=== PATIENT | female | born 1960 | race Caucasian/White ===

== ENCOUNTER 2017-05-15 22:02 | Emergency (ER) | payer OTHER ==
[~2017-05-15] VITALS: Ht 165.1 cm; Wt 74.0 kg
[~2017-05-15 22:02] MED LIST: AMLO10 PO; ATRO1SOL11 LEFT EYE; CITA40TA4 PO; DORZ2SOL7 LEFT EYE; DOXY100C PO; ESTR2TAB4 PO; HYDR50TA3 PO; LABE200T2 PO; LOVA20TA PO; METO100T PO; NORE5TAB PO; SULF10SU3 LEFT EYE; VIGA0.5D LEFT EYE
[2017-05-15 22:22] VITALS: BP 157/91; PULSE 86; RESP 22; TEMP 98.3; O2SAT 98
[2017-05-15] MEDS ORDERED: TETANUS/DIPHTHERIA TOXOID ADULT 0.5 ML VIAL IM ONE (22:30)
[2017-05-15] MEDS ORDERED: LIDOCAINE 1%/EPINEPHrine 1:100,000 SOLN 20 ML VIAL INFIL ONE (22:30)
--- NOTE | 2017-05-15 22:32 | PD ---
HPI Chief Complaint: Bite or Sting Time Seen by Provider: 22:21 Travel History International Travel<30 days: No Contact w/Intl Traveler<30days: No Traveled to known affect area: No History of Present Illness HPI Patient comes in for evaluation status post dog bite to the distal tib-fib right lower extremity that occurred shortly prior to arrival. Patient states it was her niece's dog that is a rather large puppy and a pit bull mix that started attacking for no apparent reason. Patient states she went to get the dog off of her niece when she ended up getting bit. Patient states the dog grabbed her by the leg and drug her around. Patient complaining of a throbbing aching pain around site of the laceration without radiation. Pain is worse with movement of her right ankle/foot. Patient reports her tetanus shot is not up-to-date. Patient does not believe the dog's vaccinations are up-to-date but the dog has been placed in custody. Patient received 6 mg of morphine by EMS en route to the ER that seemed to help the patient's pain some. Denies any numbness or tingling. 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 ) Social History Alcohol Use: Yes (occas) Tobacco Use: No Substance Use: No Allergies-Medications (Allergen,Severity, Reaction): Coded Allergies: butorphanol (Unverified Allergy, Severe, Anaphylaxis, 04/03/17) diclofenac (Unverified Allergy, Severe, Anaphylaxis, 04/03/17) etodolac (Unverified Allergy, Severe, Anaphylaxis, 04/03/17) flurbiprofen (Unverified Allergy, Severe, Anaphylaxis, 04/03/17) ibuprofen (Unverified Allergy, Severe, Anaphylaxis, 04/03/17) indomethacin (Unverified Allergy, Severe, Anaphylaxis, 04/03/17) ketoprofen (Unverified Allergy, Severe, Anaphylaxis, 04/03/17) ketorolac (Unverified Allergy, Severe, Anaphylaxis, 04/03/17) naproxen (Unverified Allergy, Severe, Anaphylaxis, 04/03/17) oxaprozin (Unverified Allergy, Severe, Anaphylaxis, 04/03/17) pseudoephedrine (Unverified Allergy, Severe, Itching, 04/03/17) Reported Meds & Prescriptions Reported Meds & Active Scripts Active Bactroban Topical (Mupirocin) 22 Gm Cream 1 Applic TOPICAL TID 7 Days Lortab (Hydrocodone-Acetaminophen) 5-325 Mg Tab 1 Tab PO Q6H PRN Augmentin (Amoxicillin-Clavulanate) 875-125 Mg Tab 1 Tab PO BID 10 Days Reported Norvasc (Amlodipine Besylate) 10 Mg Tab 10 Mg PO DAILY Citalopram (Citalopram Hydrobromide) 40 Mg Tab 40 Mg PO DAILY Lovastatin 20 Mg Tab 20 Mg PO DAILY Metoprolol Tartrate 100 Mg Tab 100 Mg PO DAILY Norethindrone (Norethindrone Acetate) 5 Mg Tab 0.35 Mg PO DAILY Estrace (Estradiol) 2 Mg Tab 2 Mg PO DAILY Hydrochlorothiazide 50 Mg Tab 50 Mg PO BID Doxycycline Hyclate 100 Mg Cap 100 Mg PO HS Labetalol (Labetalol HCl) 200 Mg Tab 200 Mg PO DAILY Atropine Opth Drops 1% Soln 1 Drop LEFT EYE DAILY Cosopt Opth Drops (Dorzolamide-Timolol Opth Drops) 22.3-6.8 Mg/Ml Soln 1 Drop LEFT EYE BID Blephamide Opth Drops (Prednisolone/Sulfacetamide) 10-0.2 % Susp 1 Drop LEFT EYE 10 TIMES / DAY Vigamox Opth Drops (Moxifloxacin Opth Drops) 0.5 % Soln 1 Drop LEFT EYE 6 TIMRS /DAY Review of Systems Except as stated in HPI: all other systems reviewed are Neg Physical Exam Narrative GENERAL: Well-developed, overly nourished, in no acute distress, and non-ill appearing. SKIN: Multiple dog bites/lacerations noted distal tib-fib right lower extremity. Neurovascularly intact distally. No crepitus. Patient reports tenderness to palpation around the sites of the bites. There is no obvious tendon involvement. No foreign body noted. HEAD: Atraumatic. Normocephalic. EYES: Pupils equal and round. EOMI. No scleral icterus. No injection or drainage. ENT: No nasal bleeding or discharge. Mucous membranes pink and moist. NECK: Trachea midline. Supple. No nuclear rigidity. CARDIOVASCULAR: Dorsal pulses 2+, tach, and equal bilaterally. Capillary refill less than 2 seconds. RESPIRATORY: No accessory muscle use. No respiratory distress. MUSCULOSKELETAL: No obvious deformities. No clubbing. No cyanosis. No edema. Decreased range of motion right ankle secondary to pain. Ankle: Neagative anterior draw and Islas test. Negative Antoinette's sign. No laxity noted with passive inversion and eversion of BL ankles. Negative squeeze test. Pulses equal BL distal to injury. Capillary refill less than 2 seconds distal to injury and equal BL. Sensation equal BL 1st web space. FROM of toes distal to injury and equal BL. NV intact distal to injury and equal BL. Dorsal pulses equal BL. NEUROLOGICAL: Awake and alert. No obvious cranial nerve deficits. Motor grossly within normal limits. Normal speech. PSYCHIATRIC: Appropriate mood and affect; insight and judgment normal. Data Data Last Documented VS Vital Signs Date Time Temp Pulse Resp B/P (MAP) Pulse Ox O2 Delivery O2 Flow Rate FiO2 05/15/17 23:48 20 98 Room Air 05/15/17 22:24 85 05/15/17 22:22 98.3 157/91 (113) Orders Orders Iv Access Insert/Monitor (05/15/17 22:21) Tetanus/Diphtheria Tox Adult (Tetanus/Di (05/15/17 22:30) Lidocai-Epi 1%-1:100,000 Inj (Xylocaine- (05/15/17 22:30) Tibia/Fibula (Ap/Lat) (05/15/17 ) Lidocai-Epi 2%-1:100,000 Inj (Xylocaine- (05/15/17 22:45) Morphine Inj (Morphine Inj) (05/15/17 22:45) Sodium Chlor 0.9% 1000 Ml Inj (Ns 1000 M (05/15/17 22:35) Sodium Chloride 0.9% Flush (Ns Flush) (05/15/17 22:45) Ondansetron Inj (Zofran Inj) (05/15/17 22:45) Ecg Monitoring (05/15/17 22:35) Oximetry (05/15/17 22:35) Amoxicil-Clavulanate (Augmentin) (05/15/17 23:00) Crutches (05/15/17 22:57) Hydromorphone Pf Inj (Dilaudid Pf Inj) (05/15/17 23:30) Lorazepam (Ativan) (05/15/17 23:30) Acetamin-Hydrocod 325-5 Mg ([place] 5-325 (05/16/17 02:30) Mupirocin 2% Oint (Bactroban 2% Oint) (05/16/17 03:15) MDM Medical Decision Making Medical Screen Exam Complete: Yes Emergency Medical Condition: Yes Differential Diagnosis Dog bite, open fracture, foreign body, other Narrative Course The patient suffered animal bite wound. The animal is domesticated and the animal can be watched. There is no evidence of deep tissue involvement and/or local tendon involvement. There was no evidence to suggest foreign bodies. Visual and tactile exams were unremarkable. There was no evidence of neurovascular injury as well. The patients wounds were irrigated copiously, cleaned and dressed. Please see procedure note. Rabies prophylaxis was discussed with the patient and exposure appears low risk and not indicated. The patient was given signs and symptom warnings for infection, such as increasing pain, pain with movement of involved extremity,redness, swelling, associated heat, pus or fever. The patient was given antibiotics to cover mouth cuco and instructions for timely follow up for wound recheck. The patient was given instructions for timely follow up and for removal. The patient agreed with plan of care. Animal control was contacted per hospital protocol. X-ray was performed and there was no foreign body or tooth/tooth fragment. The patient was warned of possible unseen foreign body and instructed to return immediately if signs or symptoms develop. Patient in no obvious distress upon re-evaluation. All pertinent Radiology result(s) discussed with patient. Discussed patient with Dr. Beard prior to discharge, who is in agreement with plan of care and disposition. Patient was asked if they wanted to speak to my attending, which the patient did not wish to do at this time. Any questions/concerns in reference to patient diagnosis/ condition discussed and clarified prior to patient's discharge. Reinforced sheer importance of close follow up with patient's primary physician or primary care clinic. Instructed patient to return to ED immediately, if symptoms return/ worsen. Patient showed understanding of above instructions. Further instructions and recommendations were detailed in discharge paperwork. Patient left without difficulty out of ED at discharge. Diagnosis Primary Impression: Dog bite Qualified Codes: W54.0XXA - Bitten by dog, initial encounter Patient Instructions: Animal Bite (ED), Crutch Instructions (ED), General Instructions Additional Instructions: Follow-up with your primary care physician in 2-3 days for reevaluation. Return here in 10 days for suture removal. Take all medication as prescribed. Keep wound dry and clean as possible using soap and water. Do not soak or submerge wounds. Use crutches as needed. Return to the emergency department if symptoms get worse.s Med/Other Pt SpecificInfo: Prescription(s) given Scripts Mupirocin Topical (Bactroban Topical) 22 Gm Cream 1 APPLIC TOPICAL TID for Mgmt Bacterial Infection for 7 Days, #1 TUBE 0 Refills Prov: Heavenly Beard MD 05/16/17 Hydrocodone-Acetaminophen (Lortab) 5-325 Mg Tab 1 TAB PO Q6H Y for PAIN, #12 TAB 0 Refills Prov: Heavenly Beard MD 05/16/17 Amoxicillin-Clavulanate (Augmentin) 875-125 Mg Tab 1 TAB PO BID for Infection for 10 Days, #20 TAB 0 Refills Prov: Heavenly Beard MD 05/15/17 Disposition: 01 DISCHARGE HOME Condition: Stable Nolberto Clark May 15, 2017 22:32
[2017-05-15] MEDS ORDERED: SODIUM CHLOR 0.9% 1000 ML INJ 1,000 ML IV SCH (22:35)
[2017-05-15] MEDS ORDERED: MORPHINE SULFATE 4 MG/ML INJ IV PUSH ONE (22:45)
[2017-05-15] MEDS ORDERED: ONDANSETRON HCL 4 MG/2 ML VIAL IV PUSH ONE (22:45)
[2017-05-15] MEDS ORDERED: SODIUM CHLORIDE 0.9% FLUSH 10 ML FLUSH IV FLUSH PRN (22:45)
[2017-05-15] MEDS ORDERED: LIDOCAINE 2%/EPINEPHrine 1:100,000 20ML MDV NERV BLOCK ONE (22:45)
[2017-05-15] MEDS ORDERED: AUGM875T3 PO (22:51)
[2017-05-15] MEDS ORDERED: AMOXICILLIN/CLAVULANATE K 875 MG TAB PO ONE (23:00)
--- NOTE | 2017-05-15 23:05 | RADRPT ---
EXAM DATE/TIME: 05/15/2017 22:41 [facility] COMPARISON: No previous studies available for comparison. INDICATIONS : Dog bite to right distal lower leg. MEDICAL HISTORY : None. SURGICAL HISTORY : None. ENCOUNTER: Initial ACUITY: 1 day PAIN SCORE: 0/10 LOCATION: Right tib fib FINDINGS: Two view examination of the right tibia demonstrates no evidence of fracture or dislocation. Bony mi neralization is normal. The soft tissue structures are lacerated distally CONCLUSION: Soft tissue laceration distal right leg. No acute bony abnormality. Oc Muñoz MD on May 15, 2017 at 23:01 Board Certified Radiologist. This report was verified electronically.
[2017-05-15] MEDS ORDERED: HYDROmorphone HCL PF 1 MG/ML VIAL IV PUSH ONE (23:30)
[2017-05-15] MEDS ORDERED: LORazepam 0.5 MG TAB PO ONE (23:30)
[2017-05-15 23:48] VITALS: RESP 20; O2SAT 98
[2017-05-16] MEDS ORDERED: HYDR-3533 PO (02:19)
[2017-05-16] MEDS ORDERED: ACETAMINOPHEN/HYDROcodone 325 MG/5 MG TAB PO ONE (02:30)
[2017-05-16] MEDS ORDERED: MUPIROCIN 2% OINT 22 GM TUBE TOPICAL ONE (03:15)
[2017-05-16] MEDS ORDERED: MUPI2%T TOPICAL (03:32)
--- NOTE | 2017-05-16 04:39 | PD ---
Physical Exam Time Seen by Provider: 04:36 Data Data Last Documented VS Vital Signs Date Time Temp Pulse Resp B/P (MAP) Pulse Ox O2 Delivery O2 Flow Rate FiO2 05/15/17 23:48 20 98 Room Air 05/15/17 22:24 85 05/15/17 22:22 98.3 157/91 (113) Orders Orders Iv Access Insert/Monitor (05/15/17 22:21) Tetanus/Diphtheria Tox Adult (Tetanus/Di (05/15/17 22:30) Lidocai-Epi 1%-1:100,000 Inj (Xylocaine- (05/15/17 22:30) Tibia/Fibula (Ap/Lat) (05/15/17 ) Lidocai-Epi 2%-1:100,000 Inj (Xylocaine- (05/15/17 22:45) Morphine Inj (Morphine Inj) (05/15/17 22:45) Sodium Chlor 0.9% 1000 Ml Inj (Ns 1000 M (05/15/17 22:35) Sodium Chloride 0.9% Flush (Ns Flush) (05/15/17 22:45) Ondansetron Inj (Zofran Inj) (05/15/17 22:45) Ecg Monitoring (05/15/17 22:35) Oximetry (05/15/17 22:35) Amoxicil-Clavulanate (Augmentin) (05/15/17 23:00) Crutches (05/15/17 22:57) Hydromorphone Pf Inj (Dilaudid Pf Inj) (05/15/17 23:30) Lorazepam (Ativan) (05/15/17 23:30) Acetamin-Hydrocod 325-5 Mg ([place] 5-325 (05/16/17 02:30) Mupirocin 2% Oint (Bactroban 2% Oint) (05/16/17 03:15) MDM Medical Record Reviewed: Yes Supervised Visit with JEREMÍAS: No Procedures Procedure Narrative LACERATION LOCATION: Right distal lower extremity LENGTH: 9 cm NUMBER OF STITCHES/MONET: 9 sutures REPAIR: The area of the laceration was prepped with Betadine and sterilely draped. The laceration was infiltrated with a present lidocaine with epinephrine. The wound was copiously irrigated and explored without evidence of foreign body, tendon injury or neurovascular injury. The wound was loosely approximated using 4-0 Prolene. This was a single layer repair. A sterile dressing was applied. The patient was advised to keep the dressing clean and dry. Patient tolerated the procedure well. LACERATION LOCATION: Right distal lower extremity LENGTH: 3 cm NUMBER OF STITCHES/MONET: 2 sutures REPAIR: The area of the laceration was prepped with Betadine and sterilely draped. The laceration was infiltrated with a present lidocaine with epinephrine. The wound was copiously irrigated and explored without evidence of foreign body, tendon injury or neurovascular injury. The wound was loosely approximated using 4-0 Prolene. This was a single layer repair. A sterile dressing was applied. The patient was advised to keep the dressing clean and dry. Patient tolerated the procedure well. LACERATION LOCATION: Right distal lower extremity LENGTH: 4 cm NUMBER OF STITCHES/MONET: 4 sutures REPAIR: The area of the laceration was prepped with Betadine and sterilely draped. The laceration was infiltrated with a present lidocaine with epinephrine. The wound was copiously irrigated and explored without evidence of foreign body, tendon injury or neurovascular injury. The wound was loosely approximated using 4-0 Prolene. This was a single layer repair. A sterile dressing was applied. The patient was advised to keep the dressing clean and dry. Patient tolerated the procedure well. LACERATION LOCATION: Right distal lower extremity LENGTH: 3 cm NUMBER OF STITCHES/MONET: 4 sutures REPAIR: The area of the laceration was prepped with Betadine and sterilely draped. The laceration was infiltrated with a present lidocaine with epinephrine. The wound was copiously irrigated and explored without evidence of foreign body, tendon injury or neurovascular injury. The wound was loosely approximated using 4-0 Prolene. This was a single layer repair. A sterile dressing was applied. The patient was advised to keep the dressing clean and dry. Patient tolerated the procedure well. LACERATION LOCATION: Right distal lower extremity LENGTH: 5 cm NUMBER OF STITCHES/MONET:6 sutures REPAIR: The area of the laceration was prepped with Betadine and sterilely draped. The laceration was infiltrated with a present lidocaine with epinephrine. The wound was copiously irrigated and explored without evidence of foreign body, tendon injury or neurovascular injury. The wound was loosely approximated using 4-0 Prolene. This was a single layer repair. A sterile dressing was applied. The patient was advised to keep the dressing clean and dry. Patient tolerated the procedure well. Diagnosis Primary Impression: Dog bite Patient Instructions: General Instructions, Animal Bite (ED), Crutch Instructions (ED) Departure Forms: Tests/Procedures Additional Instruction: Follow-up with your primary care physician in 2-3 days for reevaluation. Return here in 10 days for suture removal. Take all medication as prescribed. Keep wound dry and clean as possible using soap and water. Do not soak or submerge wounds. Use crutches as needed. Return to the emergency department if symptoms get worse.s Scripts Mupirocin Topical (Bactroban Topical) 22 Gm Cream 1 APPLIC TOPICAL TID for Mgmt Bacterial Infection for 7 Days, #1 TUBE 0 Refills Prov: Heavenly Beard MD 05/16/17 Hydrocodone-Acetaminophen (Lortab) 5-325 Mg Tab 1 TAB PO Q6H Y for PAIN, #12 TAB 0 Refills Prov: Heavenly Beard MD 05/16/17 Amoxicillin-Clavulanate (Augmentin) 875-125 Mg Tab 1 TAB PO BID for Infection for 10 Days, #20 TAB 0 Refills Prov: Heavenly Beard MD 05/15/17 Disposition: 01 DISCHARGE HOME Condition: Stable Daniela Guillaume May 16, 2017 04:39
== END 2017-05-16 03:56 | disposition home or self-care (01) ==
LOC: NEPE 22:02
DX: S81.851A Open bite, right lower leg, initial encounter (principal); W54.0XXA Bitten by dog, initial encounter; Y92.009 Unspecified place in unspecified non-institutional (private) residence as the place of occurrence of the external cause; I10 Essential (primary) hypertension; Z23 Encounter for immunization
CPT/HCPCS: 12006; 73590; 90471; 90714; 96361; 96374; 96375; 99284; E0113; J1170; J2270; J2405; J7030

== ENCOUNTER 2017-05-18 19:19 | Emergency (ER) | payer OTHER ==
[~2017-05-18 19:19] MED LIST changes: +AUGM875T3 PO; +HYDR-3533 PO; +MUPI2%T TOPICAL
[2017-05-18 19:23] VITALS: BP 139/76; PULSE 80; RESP 15; TEMP 98.6; O2SAT 100
--- NOTE | 2017-05-18 20:40 | PD ---
HPI Chief Complaint: Bite or Sting Time Seen by Provider: 20:25 Travel History International Travel<30 days: No Contact w/Intl Traveler<30days: No Traveled to known affect area: No History of Present Illness HPI Patient comes in at the advice of her primary care doctor for evaluation of DVT. Patient seen here 3 days ago for dog bite reports she is taking all medication as prescribed, but continues to have pain around the area. Pain is worse when trying to move her ankle and palpation. Patient denies anything making it better. Denies any fevers or other new trauma. Patient reports she last took her pain medicine last at 11 AM. Patient states she's been taking ibuprofen along with this. 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 ) Social History Alcohol Use: Yes (occas) Tobacco Use: No Substance Use: No Allergies-Medications (Allergen,Severity, Reaction): Coded Allergies: butorphanol (Unverified Allergy, Severe, Anaphylaxis, 04/03/17) diclofenac (Unverified Allergy, Severe, Anaphylaxis, 04/03/17) etodolac (Unverified Allergy, Severe, Anaphylaxis, 04/03/17) flurbiprofen (Unverified Allergy, Severe, Anaphylaxis, 04/03/17) ibuprofen (Unverified Allergy, Severe, Anaphylaxis, 04/03/17) indomethacin (Unverified Allergy, Severe, Anaphylaxis, 04/03/17) ketoprofen (Unverified Allergy, Severe, Anaphylaxis, 04/03/17) ketorolac (Unverified Allergy, Severe, Anaphylaxis, 04/03/17) naproxen (Unverified Allergy, Severe, Anaphylaxis, 04/03/17) oxaprozin (Unverified Allergy, Severe, Anaphylaxis, 04/03/17) pseudoephedrine (Unverified Allergy, Severe, Itching, 04/03/17) Reported Meds & Prescriptions Reported Meds & Active Scripts Active Lortab (Hydrocodone-Acetaminophen) 5-325 Mg Tab 1 Tab PO Q6H PRN Augmentin (Amoxicillin-Clavulanate) 875-125 Mg Tab 1 Tab PO BID 10 Days Reported Cosopt Opth Drops (Dorzolamide-Timolol Opth Drops) 22.3-6.8 Mg/Ml Soln 1 Drop LEFT EYE BID Lisinopril 20 Mg Tab 20 Mg PO HS Lisinopril 40 Mg Tab 40 Mg PO DAILY Procardia XL (Nifedipine) 60 Mg Tab 60 Mg PO HS Metoprolol Tartrate 100 Mg Tab 100 Mg PO DAILY Doxycycline Hyclate 100 Mg Cap 100 Mg PO HS Atropine Opth Drops 1% Soln 1 Drop LEFT EYE DAILY Blephamide Opth Drops (Prednisolone/Sulfacetamide) 10-0.2 % Susp 1 Drop LEFT EYE 10 TIMES / DAY Review of Systems Except as stated in HPI: all other systems reviewed are Neg Physical Exam Narrative GENERAL: Well-developed, overly nourished, in no acute distress, and non-ill appearing. SKIN: Well-healing dog bites noted on right lower extremity complaints or dry clean intact. There is no crepitus or drainage. There is soft tissue swelling noted. There is no fluctuation. Is afebrile nontender to palpation. HEAD: Atraumatic. Normocephalic. EYES: Pupils equal and round. EOMI. No scleral icterus. No injection or drainage. ENT: No nasal bleeding or discharge. Mucous membranes pink and moist. NECK: Trachea midline. Supple. No nuclear rigidity. CARDIOVASCULAR: Dorsal pulses 2+, intact, and equal bilaterally. Capillary refill less than 2 seconds. RESPIRATORY: No accessory muscle use. No respiratory distress. MUSCULOSKELETAL: No obvious deformities. No clubbing. No cyanosis. No edema. Decreased range of motion right ankle secondary to pain. Neagative Islas test. Positive Antoinette's sign. Pulses equal BL distal to injury. Capillary refill less than 2 seconds distal to injury and equal BL. Sensation equal BL 1st web space. NV intact distal to injury and equal BL. Dorsal pulses equal BL. NEUROLOGICAL: Awake and alert. No obvious cranial nerve deficits. Motor grossly within normal limits. Normal speech. PSYCHIATRIC: Appropriate mood and affect; insight and judgment normal. Data Data Last Documented VS Vital Signs Date Time Temp Pulse Resp B/P (MAP) Pulse Ox O2 Delivery O2 Flow Rate FiO2 05/18/17 22:45 78 18 99 05/18/17 19:23 98.6 Room Air Orders Orders Us Leg Venous Doppler (05/18/17 20:32) Oxycodone-Acetamin 5-325 Mg (Percocet (05/18/17 20:45) Wound Care (05/18/17 22:17) MDM Medical Decision Making Medical Screen Exam Complete: Yes Emergency Medical Condition: Yes Interpretation(s) Ultrasound right lower extremity read by the radiologist shows: No evidence of DVT. Differential Diagnosis DVT, wound infection, wound recheck, other Narrative Course Patient in no obvious distress upon re-evaluation. All pertinent Radiology result(s) discussed with patient/family. Discussed patient with Dr. Madsen , who saw and evaluated the patient and is in agreement with plan of care and disposition. Any questions/concerns in reference to patient diagnosis/ condition discussed and clarified prior to patient's discharge. Reinforced sheer importance of close follow up with patient's primary physician or primary care clinic. Instructed patient to return to ED immediately, if symptoms return/ worsen. Patient showed understanding of above instructions. Further instructions and recommendations were detailed in discharge paperwork. Patient ambulated without difficulty out of ED at discharge. Diagnosis Primary Impression: Encounter for wound re-check Ruled Out: DVT (deep venous thrombosis) Patient Instructions: Acute Wounds (DC), Animal Bite (ED), General Instructions Additional Instructions: Follow-up with your primary care physician or return here in 7-10 days for suture removal. Take all medication as prescribed. Finish antibiotics previously prescribed. Return to the emergency department if symptoms get worse. Med/Other Pt SpecificInfo: Prescription(s) given Scripts Hydrocodone-Acetaminophen (Lortab) 5-325 Mg Tab 1 TAB PO Q6H Y for PAIN, #12 TAB 0 Refills Prov: Pedro Madsen MD 05/18/17 Disposition: 01 DISCHARGE HOME Condition: Stable Nolberto Clark May 18, 2017 20:40
[2017-05-18] MEDS ORDERED: oxyCODONE/ACETAMINOPHEN 5 MG/325 MG TAB PO ONE (20:45)
[2017-05-18] MEDS ORDERED: NIFE1TAB86 PO (21:15)
[2017-05-18] MEDS ORDERED: LISI-515 PO (21:15)
[2017-05-18] MEDS ORDERED: LISI40TA PO (21:15)
[2017-05-18] MEDS ORDERED: DORZ2SOL7 LEFT EYE (21:15)
--- NOTE | 2017-05-18 22:11 | RADRPT ---
EXAM DATE/TIME: 05/18/2017 21:30 [facility] COMPARISON: No previous studies available for comparison. INDICATIONS : Right leg pain. MEDICAL HISTORY : Hypertension. SURGICAL HISTORY : section. Cornea surgery. ENCOUNTER: Initial ACUITY: 1 week PAIN SCORE: 3/10 LOCATION: Right leg. TECHNIQUE: Venous ultrasound of the leg was performed from the inguinal ligament to the proximal calf. Real-son e, color Doppler and spectral tracing, compression and augmentation techniques were used. FINDINGS: There is normal compressibility of the deep venous system from the inguinal region to the proximal ca lf. No echogenic clot is seen in the lumen of the common femoral, femoral, popliteal, and posterior tibial veins. There is a normal response of the venous system to proximal and distal augmentation an d respiration. CONCLUSION: No DVT of the right lower extremity. Nima Lyon MD on May 18, 2017 at 22:09 Board Certified Radiologist. This report was verified electronically.
[2017-05-18] MEDS ORDERED: HYDR-3533 PO (22:20)
--- NOTE | 2017-05-18 23:26 | PD ---
Data Data Last Documented VS Vital Signs Date Time Temp Pulse Resp B/P (MAP) Pulse Ox O2 Delivery O2 Flow Rate FiO2 05/18/17 22:45 78 18 99 05/18/17 19:23 98.6 Room Air Orders Orders Us Leg Venous Doppler (05/18/17 20:32) Oxycodone-Acetamin 5-325 Mg (Percocet (05/18/17 20:45) Wound Care (05/18/17 22:17) MDM Supervised Visit with JEREMÍAS: Yes Narrative Course The history, exam, and medical decision-making in the associated mid-level provider note were completed with my assistance. I reviewed and agree with the findings presented. I attest that I had a [id number] encounter with the patient on the same day, and personally performed and documented my assessment and findings in the medical record. *My assessment and Findings: 57 year-old woman who presents to the emergency department status post dog bite to her leg, now some swelling and pain, rule out DVT. Ultrasounds negative. Recommend compression, elevation, continue antibiotics. Would itself looks to be healing well with no evidence of obvious infection. Diagnosis Primary Impression: Encounter for wound re-check Ruled Out: DVT (deep venous thrombosis) Patient Instructions: General Instructions, Animal Bite (ED), Acute Wounds (DC) Departure Forms: Tests/Procedures Additional Instruction: Follow-up with your primary care physician or return here in 7-10 days for suture removal. Take all medication as prescribed. Finish antibiotics previously prescribed. Return to the emergency department if symptoms get worse. Scripts Hydrocodone-Acetaminophen (Lortab) 5-325 Mg Tab 1 TAB PO Q6H Y for PAIN, #12 TAB 0 Refills Prov: Pedro Madsen MD 05/18/17 Disposition: 01 DISCHARGE HOME Condition: Stable Pedro Madsen MD May 18, 2017 23:26
== END 2017-05-18 22:45 | disposition home or self-care (01) ==
LOC: NEPE 19:19
DX: Z51.89 Encounter for other specified aftercare (principal); M79.89 Other specified soft tissue disorders; I10 Essential (primary) hypertension
CPT/HCPCS: 93971